=== PATIENT | female | born 1995 | race Caucasian/White ===

== ENCOUNTER 2022-12-26 10:37 | Day surgery (SDC) | payer BC, SELFPAY ==
--- NOTE | 2022-12-26 | LES_PTH ---
PATIENT: MARGA GALE [place] [facility] [place][id number] AGE/SX: 27/F ROOM: RE12/26/[address]: Dr. Mehnaz Iraheta MD : 1995 BED: DIS: 12/26/2022 SPEC #: [id number] RECD: 12/26/22 14:07 STATUS: DEE DEE LILLIAM #: [id number] NEAL: 12/26/22 00:[address]: Mehnaz Iraheta DEPT: SURGICAL PATHOLOGY RECD BY: Floyd Cote ENTERED: 12/26/22 14:08 SP TYPE: Lesion OTHR DR: No Primary Care Phys Tissues: A - Skin of face, NOS B - Skin of eyelid, NOS Procedures: Surgery Specimen Level IV HEADER OPERATION: Excision lesion, cheek, eye lateral PRE-OP DIAGNOSIS: Neoplasm of skin of face TISSUE SUBMITTED: A - Lesion right cheek, B - Lesion right eye area MICROSCOPIC DIAGNOSIS A. Skin lesion of right cheek, excision: Compound nevus with predominantly intradermal component. B. Lesion of right area, excision: Compound nevus with predominantly intradermal component. AM:nikki 12/29/2022 MICROSCOPIC DESCRIPTION Slides are reviewed. GROSS DESCRIPTION A - Received in fixative is one container labeled with the patient's name and designated lesion right cheek. The specimen consists of a piece of scott-white skin measuring 0.4 x 0.4 x 0.3 cm. The specimen is inked, bisected and submitted entirely in one cassette. B - Received in fixative is one container labeled with the patient's name and designated lesion right eye area. The specimen consists of a piece of brownish-black skin measuring 0.1 x 0.1 x <0.1 cm. The entire specimen is submitted in one cassette. / MARY:nikki 12/26/2022 TC:5 CPT:
[2022-12-26 10:58] VITALS: BP 106/69; PULSE 61; RESP 18; TEMP 36.6; O2SAT 100; BMI 33.5
--- NOTE | 2022-12-26 11:17 | PCM.HP.STD ---
HPI - General HPI Narrative MARGA GALE, is a 27 F who presents [facility] Home Medications NK 10/01/22 [History Last Taken Unknown] Allergy/AdvReac Type Severity Reaction Status Date / Time No Known Allergies Allergy Verified 12/26/22 10:58 Family History (Updated 10/01/22 @ 12:45 by Asya Guerrero) Other Colon cancer Diabetes Surgical History History of surgery on lower extremity Social History (Updated 10/01/22 @ 12:45 by Asya Guerrero) Smoking Status: Never smoker alcohol intake: never substance use type: does not use Vital Signs Vital Signs Vital Signs: 12/26/22 10:58 12/26/22 10:58 Temperature 97.8 F Temperature Source Temporal Pulse Rate 61 Respiratory Rate 18 Respiratory Pattern Normal Blood Pressure 106/69 Blood Pressure Mean 81 Blood Pressure Source Monitor Blood Pressure Position Semi-Fowlers Blood Pressure Location Left Arm Pulse Ox 100 Oxygen Delivery Method Room Air Weight Weight: 195 lb 12.328 oz Body Mass Index (BMI) 33.5 Physical Exam Const alert, oriented x3, no apparent distress, average body habitus and well nourished General Appearance: cooperative and well developed Orientation / Consciousness: oriented to person, oriented to place and oriented to time HEENT head/scalp atraumatic, external ears normal and external nose normal Head and Scalp: normal to inspection, normocephalic, atraumatic and abrasion Face and Sinus: normal facial exam and face symmetric Nose: external nose normal External Ear: external ears normal External Auditory Canal: EAC's normal Mouth: lips normal Eyes PERRL, EOMs intact bilaterally and conjunctivae normal General Eye: normal appearance of both eyes Periorbital: periorbital findings normal Eyelid: eyelids normal Conjunctiva: conjunctiva normal Pupil: PERRL Neck full ROM Lymph Lymphatic: no lymphadenopathy noted Chest inspection of chest normal Breast/Axilla Palpation: no axillary lymphadenopathy Resp normal respiratory effort, normal air movement and clear to auscultation bilaterally Auscultation: clear to auscultation bilaterally Cardio regular rate, regular rhythm, S1 normal heart sound, S2 normal heart sound and no murmurs Rate: regular rate Rhythm: regular rhythm GI soft to palpation and non-tender Extremity normal to inspection and full ROM General Extremity: normal exam except as noted Skin Skin Narrative: With an exophytic lesion of the right upper eye area. She also has a variegated pigmented lesion in the right preauricular area. General Skin Exam: turgor normal Neuro oriented x3, CN's II-XII intact bilaterally, moves all extremities, no focal motor deficits and no sensory deficits noted Sensorium / Orientation: awake, alert, oriented to person, oriented to place and oriented to time Speech: speech normal Gait (Neuro): normal gait Psych mental status grossly normal Attention / Concentration: concentration grossly intact Memory / Cognition: memory grossly intact Assessment & Plan Assessment/Plan (1) Neoplasm of uncertain behavior of skin of face: PLAN: Plan For excision lesion eyelid and preauricular area with submission for pathologic evaluation.
[2022-12-26 11:31] VITALS: BP 107/70; BP 108/73; O2SAT 100; O2SAT 98; O2SAT 99
[2022-12-26] MEDS: Povidone Iodine 30 ML Opthalmic Sol 1 DRP (11:34)
[2022-12-26] MEDS: Lidocaine 1% /Epi 1:100 9 ML, Sodium Bicarbonate 1 MEQ OPERA.SITE (11:37)
[2022-12-26] MEDS: Erythromycin Base 1 OPTH.TUBE 1 APPLIC (12:01)
--- NOTE | 2022-12-26 12:06 | DCINST_ITS ---
Discharge Instructions Dressing / Incision Additional Dressing/Incision Instructions:: Keep the area on the cheek dry. Leave dressings in place until seen in the office. On the eyelid, apply a thin layer of the antibiotic ointment given 1 x a day (erythromycin opthalmic). Follow Up Care Please Follow Up With: Mehnaz Iraheta MD Test Results: Test results from this visit will be discussed in further detail at your follow- up appointment, if applicable. Discharge Plan Admission Attending Provider: Mehnaz Iraheta Primary Care Provider: Care Physician,Kylie Primary Discharge Orders/Prescriptions Prescriptions: New cephalexin 500 mg capsule 500 mg PO BID Qty: 10 0RF Referrals / Follow Up: Care Physician,No Primary [Primary Care Provider] - Disposition Disposition (needs filled in before D/C Order can be placed): Home, Self Care
--- NOTE | 2022-12-26 12:12 | PCM.OPRPT ---
Problems Associated Problem List Diagnoses (1) Neoplasm of uncertain behavior of skin of face: Report of Operation Date of Procedure: 12/26/22 Pre-Operative Diagnosis: Lesion right upper eyelid; lesion right cheek Post-Operative Diagnosis: same Surgery/Procedure Performed:: Excision lesion right upper eyelid (0.3 cm); excision lesion right cheek (1.5 cm) with intermediate closure Surgeon: Mehnaz Iraheta Type of Anesthesia: Local Specimen's removed: Lesion right upper eyelid; lesion right cheek Description of Procedure: The patient is marked in the preop holding area. Informed consent is obtained. The patient is brought to the operating room and placed on the operating room table in the supine position. The right face is prepped and draped in the usual sterile fashion. 1% Xylocaine with epinephrine is used for local anesthetic. Following this, the lesion of the right upper eyelid is excised at the base and the base full rise. The specimen is passed off the operative field to be sent to pathology. Erythromycin ophthalmic ointment is placed on the site. We then directed our attention to the lesion of the right cheek and after this is anesthetized with 1% Xylocaine with epinephrine buffered with sodium bicarb, it is elliptically excised. The specimen is passed off the operative field to be sent to pathology. Hemostasis is controlled with cautery. The incision is then closed in layers using a 5-0 Monocryl suture in the subcutaneous tissue and dermis. Skin edges are approximated with a running subcuticular Monocryl suture. Further reinforcement the closure was done with an interrupted Prolene suture. Dermabond and Steri-Strips were placed on the site. She tolerated the procedure well was taken to the recovery room in an awake and stable condition. Needle and sponge counts are correct. Complications None Admit VTE Documentation VTE Mechan Device Prophylaxis: None Reason prophylaxis not ordered:: Treatment Not Indicated
[2022-12-26 12:15] VITALS: BP 105/70; BP 106/69; PULSE 67; RESP 16; TEMP 36.8; O2SAT 100
== END 2022-12-26 12:26 | disposition home or self-care (01) ==
LOC: SDC 10:44 → AC 10:46
PROVIDERS: Referring Provider Plastic Surgery; Visit Provider Plastic Surgery
PROC: (CPT 12051; principal; 2022-12-26 12:05)
DX: D36.7 Benign neoplasm of other specified sites (principal); D31.91 Benign neoplasm of unspecified part of right eye
CPT/HCPCS: 12051; 88305; A4216